=== PATIENT | female | born 1950 | race Caucasian/White ===

== ENCOUNTER 2020-07-09 10:21 | Emergency (ER) | payer MEDICARE, SELFPAY ==
--- NOTE | ~2020-07-09 | XR_ITS ---
EXAMINATION: XR chest 2V DATE: 07/09/2020 11:20 INDICATION: Chest pain. Palpitations. TECHNIQUE: Frontal and lateral views of the chest were obtained. COMPARISON: Chest 2 views 12/24/2012, CT abdomen and pelvis 03/13/2016 FINDINGS: The chest demonstrates clear lungs without pneumonia, pleural effusion, or pneumothorax. Th e heart size is normal. Surgical clips in the right upper quadrant are likely from cholecystectomy. IMPRESSION: 1. No acute cardiopulmonary disease. Reviewed, dictated and finalized at location B.
[2020-07-09 10:29] VITALS: BP 180/70; PULSE 109; RESP 18; TEMP 36.6; O2SAT 100
--- NOTE | 2020-07-09 10:32 | ECG_ITS ---
Measurements Intervals Trade Rate: 107 P: 59 [place]: 146 QRS: 19 QRSD: 83 T: 34 QT: 317 QTc: 424 Interpretive Statements SINUS TACHYCARDIA DELAYED PRECORDIAL R/S TRANSITION MINIMAL Q WAVES- INFERIOR LEADS BORDERLINE ST-T WAVE ABNORMALITY- ANT/HIGH LAT LEADS ABNORMAL ECG Electronically Signed On 07-09-2020 10:53:25 CDT by Brendan Baldwin D.O.
[2020-07-09 10:51] LABS: Basophils Absolute Auto 0.1 K/mm3 (0.0-0.1); Eosinophils Absolute Auto 0.2 K/mm3 (0-0.3); Eosinophils Percent Auto 2.3 % (0-4.4); Hematocrit 39.1 % (37.0-47.0); Hemoglobin 13.2 g/dL (12.0-15.0); Immature Granulocyte Absolute 0.02 K/mm3 (0.00-0.031); Immature Granulocyte Percent A 0.3 % (0-0.5); Lymphocytes Absolute Auto 1.49 K/mm3 (0.9-3.2); Lymphocytes Percent Auto 21.5 % (18.3-44.2); Mean Corpuscular HGB Conc 33.8 g/dl (32-36); Mean Corpuscular Hemoglobin 31.6 pg (26-34); Mean Corpuscular Volume 93.5 fl (80-100); Mean Platelet Volume 9.5 fl (7.4-10.4); Monocytes Absolute Auto 0.6 K/mm3 (0.1-0.6); Monocytes Percent Auto 8.5 % (2.6-8.5); Neutrophils Absolute Auto 4.6 K/mm3 (1.3-6.7); Neutrophils Percent Auto 66.4 % (45.5-73.1); Platelet Count Result 337 k/mm3 (150-375); Red Blood Count 4.18 M/mm3 (4.2-5.4); Red Cell Distribution Width 13.2 % (11.5-14.5); White Blood Count 6.9 K/mm3 (4.5-10.0)
--- NOTE | 2020-07-09 10:51 | ED.ARRPALP ---
HPI - Arrhythmia/Palpitations General Chief Complaint: Arrhythmia/Palpitations Stated Complaint: Rapid Heart Rate Time Seen by Provider: 07/09/20 10:35 History of Present Illness HPI narrative: Patient presents to the ED with 3 days of fast heart rate. She said it was up to 140. She said there is discomfort with it but is not really chest pain. She thought initially it might be a panic attack because she does have some stress in the family, but meditation did not help. She does not smoke cigarettes, and drinks alcohol, but denies the possibility of alcohol withdrawal. She drinks max 5 drinks in a day, but says she is not a heavy drinker. She usually drinks 2-4 drinks a day. She is on a keto diet and has lost 15 pounds in 2 months. She is not taking any diet pills. She is not taking any pseudoephedrine with her Claritin or Zyrtec. She is worried about her grandson who recently lost his job and is bipolar in a manic phase and will not see a doctor. 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 She has not been sick otherwise with cough cold fever or throwing up or diarrhea. MD complaint: rapid heart beat, heart racing , palpitations and irregular heart beat Onset (ago): day(s) Duration: constant Severity: moderate Context: occurred during rest Arrhythmia history: other (None) Associated symptoms: chest pain and anxiety Treatments prior to arrival: other (Meditation) Related Data Home Medications Medication Instructions Recorded Confirmed loratadine [Claritin] mg 10/01/19 omeprazole magnesium [Prilosec OTC] PO 10/01/19 Allergies Allergy/AdvReac Type Severity Reaction Status Date / Time codeine Allergy Unknown HALLUCINATI Verified 07/09/20 10:35 ONS Penicillins Allergy Unknown Rash Verified 07/09/20 10:35 Review of Systems Review of Systems: Narrative: CONSTITUTIONAL: Denies fever, chills, or sweats. EYES: Denies visual changes, redness, or discharge. ENT: Denies rhinorrhea, congestion, sore throat, or otalgia. CARDIOVASCULAR: She has chest pain, and palpitations, but not edema. RESPIRATORY: Denies cough or dyspnea. GASTROINTESTINAL: Denies abdominal pain, nausea, vomiting, or diarrhea. GENITOURINARY: Denies dysuria or hematuria. SKIN: Denies rash or itching. MUSCULOSKELETAL: Denies back pain, joint pain, or myalgia. NEUROLOGIC: Denies headache, numbness, or weakness. PSYCHIATRIC: He has anxiety. All systems reviewed & are unremarkable except as noted in HPI and below PMFSH Family History Family History Mother Family history of osteoporosis Father Family history of Alzheimer's disease Sibling Family history of diabetes mellitus in first degree relative Grandparent Diabetes mellitus Social History Social History (Updated 07/09/20 @ 10:55 by Leslie Howard MD) Smoking status: Never smoker Second hand tobacco smoke exposure: No Alcohol intake: current Substance use: never Gender identity (if verbalized by the patient): Female Exam Narrative: Exam Narrative: GENERAL: Well-appearing, well-nourished, and in no acute distress. Overweight HEAD: Normocephalic, atraumatic. EYES: PERRLA and EOMI. ENT: Nares clear, no rhinorrhea or epistaxis. Mucous membranes dry. NECK: Supple. CHEST: Clear to auscultation. No respiratory distress. HEART: Regular rate and rhythm. No murmur heard. Normal peripheral pulses. ABDOMEN: Soft, nontender, nondistended, normal active bowel sounds. EXTREMITIES: Normal range of motion. No edema. SKIN: Warm, dry, no rash. NEURO: No focal deficits. Alert and oriented x3. PSYCH: Normal mood and affect. Course Reevaluation(s) Reevaluation #1: Went back in and checked on the patient, she is feeling fine. I told all of her blood work was normal. Waiting for her urine test. Can send her home on a blood pressure medicine that was slow her heart rate. Date: 07/09/20 Time: 13:31 Reevaluation #2: Went back and checke
--- NOTE | 2020-07-09 10:54 | PC.NURSE ---
VERBAL ORDER FROM ERP BROOKE TO HOLD ASPIRIN.
[2020-07-09 11:03] LABS: Partial Thromboplastin Time 25.2 SECONDS (22.3-36.8); Prothrombin Time 12.9 Seconds (11.1-14.7)
[2020-07-09 11:06] LABS: D Dimer 0.31 ug/mL (<0.48)
[2020-07-09 11:08] LABS: Anion Gap 10 mmol/L (8-16); Blood Urea Nitrogen 14 mg/dL (7-17); Calcium 9.6 mg/dL (8.4-10.2); Carbon Dioxide 29 mmol/L (22-30); Chloride 91 mmol/L (98-107); Estimated CRCL calculation 91 ml/min; Estimated Glomerular Filt Rate > 60; Glucose 129 mg/dL (65-105); Potassium 3.6 mmol/L (3.4-5.0); Sodium 130 mmol/L (137-145)
[2020-07-09 11:21] LABS: Troponin I < 0.012 ng/mL (0.000-0.034)
--- NOTE | 2020-07-09 11:30 | PC.NURSE ---
PT UNABLE TO URINATE, REFUSING CATH.
[2020-07-09 11:41] VITALS: BP 144/78; PULSE 100; RESP 14; O2SAT 98
[2020-07-09] MEDS: SODIUM CHLORIDE 0.9% IV 1,000 ML 999 ML IV CONT (11:41)
--- NOTE | 2020-07-09 12:00 | PC.NURSE ---
PT UNABLE TO URINATE REFUSING CATH.
[2020-07-09 12:14] LABS: Alanine Aminotransferase 28 U/L (4-35); Albumin Level 4.3 g/dL (3.5-5.1); Alkaline Phosphatase 79 U/L (38-126); Anion Gap 11 mmol/L (8-16); Aspartate Amino Transferase 24 U/L (14-36); Bilirubin,Total 0.7 mg/dL (0.2-1.3); Blood Urea Nitrogen 14 mg/dL (7-17); Calcium 9.8 mg/dL (8.4-10.2); Carbon Dioxide 28 mmol/L (22-30); Chloride 91 mmol/L (98-107); Estimated CRCL calculation 91 ml/min; Estimated Glomerular Filt Rate > 60; Glucose 126 mg/dL (65-105); Potassium 3.8 mmol/L (3.4-5.0); Sodium 130 mmol/L (137-145)
[2020-07-09 12:15] LABS: Ethanol < 10 mg/dL (<10)
[2020-07-09 12:55] VITALS: BP 131/74; PULSE 92; RESP 18; O2SAT 99
--- NOTE | 2020-07-09 13:00 | PC.NURSE ---
PT ATTEMPTING URINE SAMPLE AT THIS TIME.
[2020-07-09 13:53] LABS: Appearance Urine Clear (Clear); Color Urine Colorless (Yellow)
[2020-07-09 13:54] LABS: Blood Urine Negative (Negative); Glucose Urine UA Negative (Negative); Ketones Urine 3+ mg/dL (Negative); Protein Urine Negative (Negative); Specific Grav Ur 1.015 (1.001-1.035)
[2020-07-09 13:55] LABS: Add Urine Microscopic? YES; Bilirubin Urine Negative (Negative); Leukocyte Esterase Ur Negative LEU/UL (Negative); Nitrate Urine Negative (Negative); Urobilinogen Urine 0.2 mg/dL (<2.0)
[2020-07-09 13:56] LABS: Bacteria Urine Trace /hpf; RBC Urine 0-2 /hpf (0-2); Squamous Epithelial Cell Urine Occasional /hpf (Few); WBC Urine 0-3 /hpf
[2020-07-09 14:01] LABS: Amphetamine Screen Urine Negative (Negative); Barbiturate Screen Urine Negative (Negative); Benzodiazepines Screen Urine Negative (Negative); Cannabinoid Screen Urine Negative (Negative); Cocaine Screen Urine Negative (Negative); Methadone Screen Urine Negative (Negative); Opiate Screen Urine Negative (Negative); Phencyclidine Screen Urine Negative (Negative)
[2020-07-09 14:11] VITALS: BP 107/66; PULSE 88; RESP 16; O2SAT 97
[2020-07-09 14:29] LABS: Troponin I < 0.012 ng/mL (0.000-0.034)
[2020-07-09 14:45] VITALS: BP 109/65; PULSE 87; RESP 19; O2SAT 97
== END 2020-07-09 14:46 | disposition home or self-care (01) ==
PROVIDERS: Emergency Provider Emergency Medicine; PCP Internal Medicine
DX: R00.2 Palpitations (principal); R00.0 Tachycardia, unspecified; E87.6 Hypokalemia; R94.31 Abnormal electrocardiogram [ECG] [EKG]; R07.9 Chest pain, unspecified; I10 Essential (primary) hypertension; Z79.899 Other long term (current) drug therapy
CPT/HCPCS: 36415; 71046; 80048; 80053; 80307; 81001; 84443; 84484; 85025; 85380; 85610; 85730; 93005; 96360; 99284; J7030

== ENCOUNTER 2020-07-09 15:19 | Outpatient (CLI) | payer MEDICARE, SELFPAY ==
--- NOTE | 2020-07-12 16:44 | WPDHOLTEREM ---
Holter/Event Monitor Holter/Event Monitor Date of procedure: 07/09/20 Procedure Type: 48 hour holter monitor Indications: Palpitations Conclusion: 1. 48 hour holter monitor on 07/09/20. 2. Predominant rhythm is sinus rhythm. HR range 57-218 bpm; average HR 90 bpm. 3. There are 247 premature supraventricular complexes and 68 supraventricular couplets. There are 84 episodes of paroxysmal atrial fibrillation with total burden 9.1%; fastest at 218 bpm. 4. There are 1,689 premature ventricular complexes, 59 ventricular couplets and 1 ventricular triplet. No ventricular tachycardia. 5. No sinoatrial or atrioventricular blocks. No significant pauses greater than 2 seconds. 6. Patient reports headache, dizziness, nausea which demonstrate sinus rhythm, HR range 82-126 bpm.
== END 2020-07-09 15:20 | disposition home or self-care (01) ==
LOC: ANHCARD 15:23
PROVIDERS: PCP Internal Medicine; Visit Provider Internal Medicine
DX: R00.2 Palpitations (principal)
CPT/HCPCS: 93225; 93226

== ENCOUNTER 2020-08-13 14:52 | Outpatient (CLI) | payer MEDICARE, SELFPAY ==
--- NOTE | 2020-08-13 15:05 | ECHO_ITS ---
Patient Info Name: Olivia Dunbar Age: 70 years : 1950 Gender: Female Ht: 65 in Wt: 230 lbs BSA: 2.24 m2 HR: 80 bpm BP: 149 / 77 mmHg Heart Rhythm: Sinus Rhythm Technical Quality: Good Exam Date: 08/13/2020 3:28 PM Exam Location: [facility] Patient Status: Outpatient Admit Date: 08/13/2020 Staff Ordering Physician: Brendan Baldwin DO Bag Mender: Vincenzo Yoo RDCS Attending Provider: Brendan Baldwin DO Referring Physician: Denny HUMPHREY; Exam Type: CA echo doppler color flow Study Info Indications I48.0 - Paroxysmal atrial fibrillation Complete two-dimensional, color flow and Doppler transthoracic echocardiogram is performed. Strain analysis performed. History/Risk Factors Paroxysmal Atrial Fibrillation; Palpitations. Summary 1. Complete two-dimensional, color flow and Doppler transthoracic echocardiogram is performed. 2. Left ventricular chamber dimension is normal. 3. Left ventricular systolic function is normal, estimated at 65-70%. 4. The left ventricular diastolic function is grade I diastolic dysfunction. 5. E/e' 6 is not elevated. 6. Global longitudinal strain is normal at -20.8%. 7. Left atrial chamber dimension is mildly enlarged. 8. There is mild aortic valve sclerosis. 9. There is trace tricuspid valve regurgitation. 10. No pulmonary hypertension, estimated pulmonary arterial systolic pressure is 34 mmHg. Left Ventricle E/e' 6 is not elevated. Global longitudinal strain is normal at -20.8%. Left ventricular chamber dimension is normal. Left ventricular systolic function is normal, estimated at 65-70%. The left ventricular diastolic function is grade I diastolic dysfunction. Right Ventricle Right ventricular chamber dimension is normal. Right ventricular systolic function is normal. Left Atria Left atrial chamber dimension is mildly enlarged. Right Atria Right atrial chamber dimension is normal. Aortic Valve The aortic valve is trileaflet. There is mild aortic valve sclerosis. There is no aortic valve stenosis. There is no aortic valve regurgitation. Pulmonic Valve There is no pulmonic regurgitation. Mitral Valve There is no mitral valve stenosis. There is no mitral valve regurgitation. Tricuspid Valve There is trace tricuspid valve regurgitation. No pulmonary hypertension, estimated pulmonary arterial systolic pressure is 34 mmHg. Pericardium/Pleural There is no pericardial effusion. Inferior Vena Cava Normal inferior vena cava with >50% collapse upon inspiration consistent with normal right atrial pressure, 5 mmHg. Aorta The aortic root size at the sinus of Valsalva is normal. Left Ventricular Outflow Tract Name Value Normal LVOT 2D LVOT Diameter 2.0 cm LVOT Doppler LVOT Peak Gradient 7 mmHg LVOT Mean Gradient 4 mmHg LVOT VTI 27 cm LVOT VTI/AV VTI Ratio 0.7 LVOT Stroke Volume 84 ml LVOT CO 6.6 l/min LVOT CI
== END 2020-08-13 14:53 | disposition home or self-care (01) ==
LOC: ANHCARD 14:54
PROVIDERS: PCP Internal Medicine; Visit Provider Internal Medicine Cardiovascular Disease
DX: I48.0 Paroxysmal atrial fibrillation (principal); I35.1 Nonrheumatic aortic (valve) insufficiency
CPT/HCPCS: 93306

== ENCOUNTER 2020-08-27 05:42 | Outpatient (CLI) | payer MEDICARE, SELFPAY ==
--- NOTE | 2020-09-25 14:29 | WPDHOMESLEEP ---
Sleep Study - Home Unattended Date of Study: 08/27/20 Ordering Provider: Brendan Baldwin DO Interpreting Physician: Veronica De La Vega MD Home Sleep Study Type: Apnea Link Air Height: 1.68 m Weight: 105.233 kg Body Mass Index: 37.4 [place]: 6 Reason for Sleep Study Hypersomnia Sleep History Olivia Dunbar is a 70 year-old female who wakes up frequently at night. She snores loudly and her reports witnessed apneas. She frequently awakens at night with heartburn and belching or coughing. She occasionally awakens from sleep feeling short of breath. She occasionally has trouble sleeping with a cold and occasionally wakes up gasping for breath at night. She frequently has breathing problems at night observed by others, rarely sweats excessively at night, occasionally notices her heart pounding or beating irregularly and I. She rarely falls asleep in the day, never involuntarily, never while driving and never during physical effort. She does not have loss of muscle tone with strong emotion, does not have daytime difficulties due to excessive sleepiness. 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 She does not feel paralyzed on waking or falling asleep. She occasionally has vivid dreamlike scenes upon awakening or falling asleep. She has never for a to go to sleep. She rarely has nightmares. She occasionally remembers her dreams, occasionally has racing thoughts, frequently feels sad, depressed or anxious. She rarely has muscular tension. She occasionally notices parts of her body jerking and she occasionally kicks at night. She frequently has crawly aching feelings in her legs and occasionally has leg pain at night. She does not have morning jaw pain. She rarely grinds her teeth during sleep. She occasionally has bothered by pain during the day, never is awakened by pain at night. She occasionally wakes up feeling stiff in the morning with sore achy muscles. She constantly wakes up with pain in the neck and spine. She has fatigue, palpitations and stomach problems. Normal bedtime is 10:00 p.m. falling asleep within 5-15 minute, typically waking 3-5 times at night for 1-3 minutes. While she wakes at night she repositions for comfort, tries to close her eyes and relax. She wakes at 5 in the morning during the week. On the weekend she stays awake an hour later to 11:00 p.m. and sleeps an hour later to 6:00 a.m.. She does not usually take naps. A short nap may be refreshing. Most of the time she feels good in the morning. She feels better in the afternoon compared to the morning. HABITS: never smoked tobacco. Coffee 1 cup a day and 1 glass of soda a day. Alcohol 1-3 drinks twice a week. [facility] Past Medical History Medical History Chronic anticoagulation Essential (primary) hypertension FH: cholecystectomy FH: cholecystectomy Hyperlipidemia Palpitations Paroxysmal atrial fibrillation Surgical History Surgical History H/O: hysterectomy H/O: hysterectomy Family History Family History Mother Family history of osteoporosis Father Family history of Alzheimer's disease Sibling Family history of diabetes mellitus in first degree relative Grandparent Diabetes mellitus Social History Social History Smoking status: Never smoker Second hand tobacco smoke exposure: No Alcohol intake: current Substance use: never Gender identity (if verbalized by the patient): Female Medications Home Medications Medication Instructions Recorded Confirmed Type loratadine [Claritin] mg 10/01/19 09/07/20 History omeprazole magnesium [Prilosec OTC] PO 10/01/19 09/07/20 History metoprolol succinate 25 mg 25 mg PO DAILY #30 tablet 07/16/20 09/07/20 Rx tablet,extended release 24 hr rivaroxaban 20 mg tablet 20 mg PO DAILY
[2020-09-25 14:45] VITALS: BMI 37.4
== END 2020-08-27 05:43 | disposition home or self-care (01) ==
LOC: ANHCSM 09-30 05:43
PROVIDERS: PCP Internal Medicine; Visit Provider Internal Medicine Cardiovascular Disease
DX: G47.33 Obstructive sleep apnea (adult) (pediatric) (principal); G47.10 Hypersomnia, unspecified; I10 Essential (primary) hypertension; I48.0 Paroxysmal atrial fibrillation; E78.5 Hyperlipidemia, unspecified; Z79.01 Long term (current) use of anticoagulants; E66.9 Obesity, unspecified; Z68.37 Body mass index [BMI] 37.0-37.9, adult
CPT/HCPCS: 95806

== ENCOUNTER 2020-09-30 08:42 | Outpatient (CLI) | payer MEDICARE, SELFPAY ==
--- NOTE | ~2020-09-30 | DEXA_ITS ---
Bone Density Report Name: Olivia Dunbar Age: 70 Sex: Female Ethnicity: White Date of : 1950 Indication: postmenopausal; parental hip fracture; height loss; hysterectomy; Referring Provider: Solomon Oakes Study: Bone densitometry was performed. Exam Date: September 30, 2020 Accession number: [id number] Bone Density: Region BMD T-score Z-score Classification AP Spine (L1-L4) 1.437 3.5 5.5 Normal Femoral Neck (Left) 0.780 -0.6 1.1 Normal Total Hip (Left) 0.916 -0.2 1.2 Normal Total Hip Bilateral Avg 0.935 -0.1 1.4 Normal Femoral Neck (Right) 0.823 -0.2 1.5 Normal Total Hip (Right) 0.952 0.1 1.5 Normal World Health Organization criteria for BMD impression classify patients as: Normal (T-score at or above -1.0), Osteopenia (T-score between -1.0 and -2.5), or Osteoporosis (T-score at or below -2.5). 10-year Fracture Risk: FRAX not reported because: All T-scores for Spine Total, Hip Total, Femoral Neck at or above -1.0 Clinical Information Provided by Patient: Parent has had a hip fracture Has used the following medications: Vitamin D, Calcium Has the following medical conditions: Hysterectomy Patient maximum height was 66.5 Menopause Age: 40 No regular weight bearing exercise Does not regularly consume dairy products Onset of menses at age 12 Number of children 2 Impression: The patient has normal bone mass. The patient has risk factors, including: parental hip fracture. Discussion: BONE DENSITY IS ABOVE THE MINIMUM DESIRABLE LEVEL AT ALL SKELETAL SITES TESTED. This patient?s bone mineral density is above the minimum desirable level (T-score -1.0 or better) at all sites measured. The patient should follow a healthful lifestyle (good nutrition with adequate calcium and vitamin D, and appropriate weight-bearing exercise). Follow-Up: Consider repeating this study in 5 years or sooner if there is some new clinical indication. Reported by: TAYLER on 09/30/2020 9:02:00 AM. Reviewed, dictated and finalized at location A. RICK
== END 2020-09-30 08:43 | disposition home or self-care (01) ==
LOC: ANHIMG 08:45
PROVIDERS: PCP Internal Medicine; Visit Provider Physician Assistant
DX: Z78.0 Asymptomatic menopausal state (principal)
CPT/HCPCS: 77080

== ENCOUNTER 2020-10-23 01:06 | Outpatient (CLI) | payer MEDICARE, SELFPAY ==
[2020-10-23 18:31] LABS: SARS-CoV-2 RNA PCR Negative
== END 2020-10-23 01:07 | disposition home or self-care (01) ==
LOC: ANHCOVIDDT 01:07
PROVIDERS: PCP Internal Medicine; Visit Provider Internal Medicine Critical Care Medicine
DX: Z20.828 Contact with and (suspected) exposure to other viral communicable diseases (principal)
CPT/HCPCS: 87635; C9803; U0003

== ENCOUNTER 2020-10-26 08:11 | Outpatient (CLI) | payer MEDICARE, SELFPAY ==
--- NOTE | 2020-12-09 17:18 | WPDSLEEPSTUD ---
Sleep Study Date of Study: 10/26/20 Ordering Provider: Brendan Baldwin DO Interpreting Physician: Veronica De La Vega MD Sleep Study Type: CPAP Titration Height: 1.65 m Weight: 105.687 kg Body Mass Index: 38.7 Neck Circumference: 43.18 cm [place]: 6 Reason for Sleep Study Home sleep test 07/21/2020 with moderate sleep-disordered breathing, AHI 15.3 with 88% of the apneas on the home test scored as centrals, and desaturation to 80%; present for CPAP titration Sleep History Olivia Dunbar is a 70 year old female with a HST 07/21/2020 showing moderate sleep disordered breathing with AHI 15.3 with 88% central apneas and desaturation to 80%. History includes waking frequently at night. She snores loudly and her reports witnessed apneas. She frequently awakens at night with heartburn and belching or coughing. She occasionally awakens from sleep feeling short of breath. She occasionally has trouble sleeping with a cold and occasionally wakes up gasping for breath at night. She frequently has breathing problems at night observed by others, rarely sweats excessively at night, occasionally notices her heart pounding or beating irregularly and I. She rarely falls asleep in the day, never involuntarily, never while driving and never during physical effort. She does not have loss of muscle tone with strong emotion, does not have daytime difficulties due to excessive sleepiness. 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 She does not feel paralyzed on waking or falling asleep. She occasionally has vivid dreamlike scenes upon awakening or falling asleep. She has never for a to go to sleep. She rarely has nightmares. She occasionally remembers her dreams, occasionally has racing thoughts, frequently feels sad, depressed or anxious. She rarely has muscular tension. She occasionally notices parts of her body jerking and she occasionally kicks at night. She frequently has crawly aching feelings in her legs and occasionally has leg pain at night. She does not have morning jaw pain. She rarely grinds her teeth during sleep. She occasionally has bothered by pain during the day, never is awakened by pain at night. She occasionally wakes up feeling stiff in the morning with sore achy muscles. She constantly wakes up with pain in the neck and spine. She has fatigue, palpitations and stomach problems. Normal bedtime is 10:00 p.m. falling asleep within 5-15 minutes, typically waking 3-5 times at night for 1-3 minutes. While she wakes at night she repositions for comfort, tries to close her eyes and relax. She wakes at 5:00 a.m. during the week. On the weekend she stays awake an hour later, 11:00 p.m., sleeps an hour later to 6:00 a.m.. She does not usually take naps. A short nap may be refreshing. Most of the time she feels good in the morning. She feels better in the afternoon compared to the morning. HABITS: never smoked tobacco. Coffee 1 cup a day and 1 glass of soda a day. Alcohol 1-3 drinks twice a week. [facility] Past Medical History Medical History (Updated 12/13/20 @ 10:25 by Veronica De La Vega MD) Chronic anticoagulation Essential (primary) hypertension FH: cholecystectomy FH: cholecystectomy Hyperlipidemia Obstructive sleep apnea Palpitations Paroxysmal atrial fibrillation Surgical History Surgical History H/O: hysterectomy H/O: hysterectomy Family History Family History Mother Family history of osteoporosis Father Family history of Alzheimer's disease Sibling Family history of diabetes mellitus in first degree relative Grandparent Diabetes mellitus Social History Social History Smoking status: Never smoker Second hand tobacco smoke exposure: No Alcohol intake: current Substance use: never Gender identity (if verbalized by the patient): Female Medications Home
[2020-12-13 10:30] VITALS: BMI 38.7
== END 2020-10-26 08:12 | disposition home or self-care (01) ==
LOC: ANHCSM 08:13
PROVIDERS: PCP Internal Medicine; Visit Provider Internal Medicine Cardiovascular Disease
DX: G47.33 Obstructive sleep apnea (adult) (pediatric) (principal); I10 Essential (primary) hypertension; I48.0 Paroxysmal atrial fibrillation; G47.10 Hypersomnia, unspecified; F10.10 Alcohol abuse, uncomplicated
CPT/HCPCS: 95811

== ENCOUNTER 2021-07-13 14:00 | Outpatient (CLI) | payer MEDICARE, SELFPAY ==
--- NOTE | ~2021-07-13 | MM_ITS ---
EXAMINATION: MM screening radha BI w samantha HISTORY: Screening mammogram TECHNIQUE: Craniocaudal and mediolateral oblique 3-D tomosynthesis images were obtained and synthetic 2-D images were generated. CAD analysis was submitted and interpreted. COMPARISON: 06/05/2012 BREAST PARENCHYMAL COMPOSITION: The breasts are almost entirely fatty. FINDINGS: There is no evidence of suspicious mass, calcification, or architectural distortion to sugg est malignancy in either breast. There has been no suspicious interval change. IMPRESSION: 1. No mammographic evidence of malignancy. 2. Recommend routine screening mammography in one year. BI-RADS Category 1: Negative Reviewed, dictated and finalized at location A.
== END 2021-07-13 14:01 | disposition home or self-care (01) ==
LOC: ANHIMG 14:04
PROVIDERS: PCP Internal Medicine; Visit Provider Internal Medicine
DX: Z12.31 Encounter for screening mammogram for malignant neoplasm of breast (principal)
CPT/HCPCS: 77063; 77067

== ENCOUNTER 2021-10-21 12:30 | Outpatient (RCR) | payer MEDICARE, SELFPAY ==
--- NOTE | 2021-09-20 14:49 | PTOPEVAL ---
Thank you for referring Olivia Dunbar to [facility].? The patient is scheduled to be seen for therapy? 1 x/week for 4 weeks. Please review, sign, date and return this plan of care ESCOBAR. I agree with and certify that the following plan of care is medically necessary. Referring Physician Date Attending Provider: Joseph Foster MD Diagnosis humaira knee pain Onset a few years Additional Evaluation Detail X-ray: windswept deformity with medial joint space narrowing on the right, lateral on the left. Both knees there is moderate to severe patellofemoral degenerative changes but tricompartmental spurring appreciated in both knees. Subjective Information She reports humaira knee pain for Query Text:As Reported By Patient/ a few years with intermittent Family pain level. She received a cortison injection humaira knees. She is limited on steps, distance walking, ADL's, transfers from lower surfaces. She has used a cane as needed for pain. Denies an exercise program. 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 Previous Treatments Previous Treatments For This Problem not for knees Pain Assessment Left Knee(s) Reported Pain Level 0 Pain Description Aching Pain Frequency Continuous Lowest Pain Intensity 0 Greatest Pain Intensity 3 Pain Aggravating Factors ADL's,Exercise/Activity,Stair Climbing,Walking Right Knee(s) Reported Pain Level 1 Pain Description Sharp Pain Frequency Chronic,Continuous Lowest Pain Intensity 1 Greatest Pain Intensity 7 Pain Aggravating Factors ADL's,Exercise/Activity,Stair Climbing,Walking Lower Extremity Range of Motion Knee Range of Motion Left Knee Flexion Range of Motion - Active 120 Right Knee Flexion Range of Motion - Active 115 Knee Extension Range of Motion - Active -2 Knee Range of Motion Limitations Pain Lower Extremity Muscle Strength Testing General Lower Extremity Strength Gross Lower Extremity Strength humaira hip flex: 4/5, ext:4-/5 and abduction: 3/5 humaira knee ext: 4-/5, knee flex
--- NOTE | 2021-09-30 11:14 | PCPTNOTE ---
Patient called to cancel appointment this date due to being sick.
--- NOTE | 2021-10-21 13:23 | PTOPEVAL ---
Physical Therapy Discharge Summary Thank you for referring Olivia Dunbar to [facility].? Olivia has attended 4 therapy visits with 1 missed visit to address her knee pain. She demonstrates improved pain, improved leg strength and improved ability to perform daily task. She has achieved maximal potential with skilled therapy services at this time. Will DC skilled PT services with goals achieved. Please review, sign, date and return this discharge summary ESCOBAR. I agree with and certify that the following plan of care is medically necessary. Referring Physician Date Attending Provider: Joseph Foster MD Problem Diagnosis humaira knee pain Onset a few years Additional Evaluation Detail X-ray: windswept deformity with medial joint space narrowing on the right, lateral on the left. Both knees there is moderate to severe patellofemoral degenerative changes but tricompartmental spurring appreciated in both knees. Subjective Information She does feel her knee pain is Query Text:As Reported By Patient/ better and her legs are Family stronger as a result of therapy. She reports improved obdulia with distance walking, steps, and transfers from lower surfaces. Denies pain with knee motions. She is not using a cane. She is performing her HEP 3x/wk. Pain Assessment Left Knee(s) Reported Pain Level 0 Lowest Pain Intensity 0 Greatest Pain Intensity 0 Right Knee(s) Reported Pain Level 2 Lowest Pain Intensity 0 Greatest Pain Intensity 5 Lower Extremity Muscle Strength Testing General Lower Extremity Strength Gross Lower Extremity Strength humaira hip flex: 4+/5, ext:4-/5 and abduction: 3+/5 humaira knee ext: 5/5, knee flex: 5/5 Stair Climbing Assessment Stair Climbing Assessment Stair Climbing Assistive Devices Hand Hold Technique Alternating Steps Stair Climbing Direction Both Up and Down Stair Climbing Comments no pain with proper control and position PT Clinical Summary Pt referred to therapy due to chronic knee pain. She recently received injections in her knees with improved symptoms on left knee. She has attended 4 therapy
== END 2021-10-24 09:15 | disposition home or self-care (01) ==
LOC: ANHPT 12:30
PROVIDERS: PCP Internal Medicine; Visit Provider Orthopaedic Surgery
DX: M25.561 Pain in right knee (principal); M25.562 Pain in left knee
CPT/HCPCS: 97110; 97112; 97162

== ENCOUNTER → 2021-11-04 10:35 | Outpatient (CLI) | payer MEDICARE, SELFPAY ==
[2021-11-04 19:26] LABS: SARS-CoV-2 RNA PCR Negative
== END ==
PROVIDERS: PCP Internal Medicine; Visit Provider Internal Medicine
DX: R50.9 Fever, unspecified (principal); Z20.822 Contact with and (suspected) exposure to COVID-19
CPT/HCPCS: C9803; U0003; U0005

== ENCOUNTER → 2021-11-07 15:10 | Outpatient (CLI) | payer MEDICARE, SELFPAY ==
--- NOTE | ~2021-11-07 | XR_ITS ---
EXAMINATION: XR chest 2V 11/07/2021 15:33 INDICATION: Cough. Chest pain. Palpitations. PROCEDURE: 2 view chest COMPARISON: Comparison to multiple prior studies sequentially, with oldest reviewed study dated 07/2004. FINDINGS: The lungs are clear. The cardiomediastinal silhouette is within normal limits. There are no pleural effusions. There is no pneumothorax suspected. IMPRESSION: 1: NO ACUTE CARDIOPULMONARY DISEASE. Reviewed, dictated and finalized at location A. ER PRINTER
== END ==
PROVIDERS: PCP Internal Medicine; Visit Provider Physician Assistant
DX: R05.9 Cough, unspecified (principal)
CPT/HCPCS: 71046

== ENCOUNTER 2022-03-17 10:08 | Outpatient (CLI) | payer MEDICARE, SELFPAY ==
--- NOTE | 2022-03-20 17:25 | P.PCNPFT_ITS ---
PFT Procedure Performed PFT Procedure Performed Spirometry with Pre/Post Bronchodilator Plethysmography (Lung Vol) Diffusing Cap (DLCO) Flow Vol Loop PFT Interpretation DOS: 03/17/2022 REQUESTING: Dr. De La Vega REASON FOR TESTING: Shortness of breath PULMONARY FUNCTION TESTS Results are reliable and reproducible. THE PATIENT WAS VERY DIZZY, NEARLY PASSED OUT DURING SPIROMETRY. SHE DID NOT HAVE PROBLEMS DURING THE REST OF THE TEST. Spirometry: Pre bronchodilator FEV1 is 71% predicted, 1.64 L, mildly reduced. Pre bronchodilator FVC is 78% predicted, 2.32 L which is in the normal range. The FEV1/ FVC ratio is 71%, within the normal range. There is a 12% increase in the FEV1 which is equal to 200 mL which is statistically significant. Lung volumes: The total lung capacity is 126% predicted, 6.53 L. This shows mild hyperinflation. The residual volume is 155%, 3.43 L, moderate air tr apping. The RV/TLC ratio is increased 53% consistent with air trapping. Airway resistance is normal. Diffusion: DLCO is 80%, normal. Flow volume loop: Mild concave pattern of the expiratory limb consistent with obstruction. IMPRESSION: This pulmonary function test shows a mild obstructive ventilatory impairment with good response to bronchodilator, mild hyperinflation, moderate air trapping and normal diffusion. In a proper clinical setting this pattern may be consistent with asthma. Veronica De La Vega MD
--- NOTE | 2022-03-20 17:33 | P.PCNSIX_ITS ---
Six Minute Walk Procedure Procedure Performed Pulmonary Stress Test (6 min walk) Six Minute Walk Six Minute Walk: DOS: 03/17/2022 REQUESTING: Dr De La Vega REASON FOR TESTING: Shortness of breath SIX MINUTE WALK This test was conducted using ATS guidelines. Initial saturation was 90% and pu lse was 88. Blood pressure was 120/75. The patient walked breathing room air and walked a total of 800 ft/ 243.8 m without stopping. Maximum pulse was 118. Saturation did not go below 90%. At the end of the study saturation was 95% and pulse was 97. IMPRESSION: This patient does not require supplemental oxygen with exertion.
== END 2022-03-17 10:09 | disposition home or self-care (01) ==
PROVIDERS: PCP Internal Medicine; Visit Provider Internal Medicine Critical Care Medicine
DX: R06.02 Shortness of breath (principal)
CPT/HCPCS: 94060; 94618; 94726; 94729

== ENCOUNTER 2022-04-14 01:00 | Day surgery (SDC) | payer MEDICARE, SELFPAY ==
[2022-04-04 14:39] VITALS: BMI 42.6
--- NOTE | 2022-04-13 16:19 | WPDGICN ---
Assessment and Plan Assessment and plan (1) GERD (gastroesophageal reflux disease): Code(s): K21.9 - Gastro-esophageal reflux disease without esophagitis Status: Acute Assessment and Plan: EGD with possible biopsy or dilatation or cautery. (2) Colon cancer screening: Code(s): Z12.11 - Encounter for screening for malignant neoplasm of colon Status: Acute Assessment and Plan: Colonoscopy with possible biopsy or polypectomy or cautery or injection of substances. GI Consult Note Consult date/time: 04/13/22 16:19 HPI: Olivia Dunbar is a 71 year old female With chronic and persistent acid reflux symptoms. She does take omeprazole 20 mg per day. she has been on medication for acid reflux for many years but if she skips even in those she has much more heartburn. Also she is having episodes of regurgitation up into her throat that causes choking. This is prone to happen at night. She denies dysphagia. She is due for colon cancer screening. Review of Systems Review of Systems: All systems reviewed & are unremarkable except as noted in HPI and below PMFSH Past Medical History Medical History Chronic anticoagulation Degenerative arthritis of knee, bilateral Essential (primary) hypertension FH: cholecystectomy FH: cholecystectomy FH: cholecystectomy FH: cholecystectomy Hyperlipidemia Obstructive sleep apnea Palpitations Paroxysmal atrial fibrillation Surgical History Surgical History H/O: hysterectomy S/P cataract extraction Family History Family History Mother Family history of osteoporosis Father Family history of Alzheimer's disease Sibling Family history of diabetes mellitus in first degree relative Grandparent Diabetes mellitus Social History Social History Smoking status: Never smoker Second hand tobacco smoke exposure: No Alcohol intake: current Drinks per week: 8 Substance use: never Substance use type: does not use Living arrangements: alone Gender identity (if verbalized by the patient): Female Spiritual care concerns: No Meds Home Medications and Allergies Home Medications Medication Instructions Recorded Confirmed Type loratadine [Claritin] 10 mg PO DAILY 10/01/19 04/14/22 History omeprazole magnesium [Prilosec OTC] 20 mg PO DAILY 10/01/19 04/14/22 History aspirin 325 mg tablet 325 mg PO DAILY 09/07/21 04/14/22 History Advair Diskus 100 mcg-50 mcg/dose 1 inh INHALATION Q12H #60 ea NS 11/07/21 04/14/22 Rx powder for inhalation albuterol sulfate 90 mcg/actuation 2 puff INHALATION Q4-6H #8.5 g 11/07/21 04/14/22 Rx aerosol inhaler lorazepam 0.5 mg tablet 0.5 mg PO DAILY PRN #14 tablet 11/07/21 04/14/22 Rx irbesartan 300 mg tablet 300 mg PO DAILY #90 tablet 11/08/21 04/14/22 Rx amlodipine 5 mg tablet See Rx Instructions .ROUTE 02/02/22 04/14/22 Rx .COMPLEX #90 tablet metoprolol succinate 25 mg See Rx Instructions .ROUTE 02/02/22 04/14/22 Rx tablet,extended release 24 hr .COMPLEX #90 tablet hydrochlorothiazide 50 mg tablet 50 mg PO DAILY #90 tablet 02/19/22 04/14/22 Rx cyclobenzaprine 10 mg tablet 10 mg PO QHS PRN #30 tablet 03/14/22 04/14/22 Rx sertraline 50 mg tablet 50 mg PO DAILY #90 tablet 03/14/22 04/14/22 Rx Allergies Allergy/AdvReac Type Severity Reaction Status Date / Time codeine Allergy Unknown HALLUCINATI Verified 04/14/22 10:06 ONS Penicillins Allergy Unknown Rash Verified 04/14/22 10:06 Exam Const: General: alert Nutritional Appearance: obese Orientation/consciousness: patient oriented x3 Resp: Auscultation: clear to auscultation bilaterally Cardio: Rhythm: regular rhythm GI: GI Palp: Yes Soft to palpation and No Tenderness to palpation present (GI) Neuro: General:
[2022-04-14 10:07] VITALS: BP 169/77; PULSE 85; RESP 16; TEMP 36.7; O2SAT 94; BMI 41.1
[2022-04-14] MEDS: LACTATED RINGERS 1,000 ML 150 ML IV CONT (10:19)
--- NOTE | 2022-04-14 10:54 | WPDANESEPPF ---
Anes - Initial Pre Proc Eval Procedure: Operation Date: 04/14/22 11:15 Proposed Procedures p Esophagogastroduodenoscopy & Screening Colonoscopy - Presley Harris MD Date/Time: 04/14/22 10:54 Surgeon: Presley Harris MD Pre Op Diagnosis: GERD, neoplasm screening Patient Data Age: 71 Gender: F Height: 1.65 m Weight: 112.1 kg Last Vital Signs Temp 98.1 F 04/14/22 10:07 Pulse 85 04/14/22 10:07 Resp 16 04/14/22 10:07 BP 169/77 H 04/14/22 10:07 Pulse Ox 94 04/14/22 10:07 Allergies Allergy/AdvReac Type Severity Reaction Status Date / Time codeine Allergy Unknown HALLUCINATI Verified 04/14/22 10:06 ONS Penicillins Allergy Unknown Rash Verified 04/14/22 10:06 Home Medications Medication Instructions Recorded Confirmed Type loratadine [Claritin] 10 mg PO DAILY 10/01/19 04/14/22 History omeprazole magnesium [Prilosec OTC] 20 mg PO DAILY 10/01/19 04/14/22 History aspirin 325 mg tablet 325 mg PO DAILY 09/07/21 04/14/22 History Advair Diskus 100 mcg-50 mcg/dose 1 inh INHALATION Q12H #60 ea NS 11/07/21 04/14/22 Rx powder for inhalation albuterol sulfate 90 mcg/actuation 2 puff INHALATION Q4-6H #8.5 g 11/07/21 04/14/22 Rx aerosol inhaler lorazepam 0.5 mg tablet 0.5 mg PO DAILY PRN #14 tablet 11/07/21 04/14/22 Rx irbesartan 300 mg tablet 300 mg PO DAILY #90 tablet 11/08/21 04/14/22 Rx amlodipine 5 mg tablet See Rx Instructions .ROUTE 02/02/22 04/14/22 Rx .COMPLEX #90 tablet metoprolol succinate 25 mg See Rx Instructions .ROUTE 02/02/22 04/14/22 Rx tablet,extended release 24 hr .COMPLEX #90 tablet hydrochlorothiazide 50 mg tablet 50 mg PO DAILY #90 tablet 02/19/22 04/14/22 Rx cyclobenzaprine 10 mg tablet 10 mg PO QHS PRN #30 tablet 03/14/22 04/14/22 Rx sertraline 50 mg tablet 50 mg PO DAILY #90 tablet 03/14/22 04/14/22 Rx Patient hx anesthesia problems: none Family hx anesthesia problems: none Results Review: All pre-operative results and documents have been reviewed as part of the pre-operative evaluation. [facility] Past Medical History Medical History Chronic anticoagulation Degenerative arthritis of knee, bilateral Essential (primary) hypertension FH: cholecystectomy FH: cholecystectomy FH: cholecystectomy FH: cholecystectomy Hyperlipidemia Obstructive sleep apnea Palpitations Paroxysmal atrial fibrillation Surgical History Surgical History H/O: hysterectomy S/P cataract extraction Family History Family History Mother Family history of osteoporosis Father Family history of Alzheimer's disease Sibling Family history of diabetes mellitus in first degree relative Grandparent Diabetes mellitus Social History Social History Smoking status: Never smoker Second hand tobacco smoke exposure: No Alcohol intake: current Drinks per week: 8 Substance use: never Substance use type: does not use Living arrangements: alone Gender identity (if verbalized by the patient): Female Spiritual care concerns: No Anes - Eval Final PreProcedure Day of Procedure 04/14/22 10:54 Patient weight: morbidly obese Heart: regular rate and rhythm Lungs: clear to auscultation Airway: Mallampati scale class III Neurological: alert and oriented Last oral intake: >/= 8 hours ASA classification: III Emergent: no Anesthetic plan: proceed Anesthesia type and monitoring: general GIVS and standard monitoring Results Review: All pre-operative results and documents have been reviewed as part of the pre-operative evaluation. Informed Consent: The patient's anesthetic plan and its attendant risks and benefits were discussed with the patient/family/POA. Questions were solicited and answers provided to the satisfaction of the patient/family/POA.
[2022-04-14] MEDS: BENZOCAINE (*SP) 60 ML SPRAY CAN (HURRICAINE) 1 SPRAY MUCOUS MEM (11:38)
--- NOTE | 2022-04-14 11:48 | SUR.OPER ---
EGD: [id number] COLON: [id number]
[2022-04-14 12:07] VITALS: BP 118/70; PULSE 74; RESP 18; O2SAT 96
[2022-04-14 12:17] VITALS: BP 129/73; PULSE 76; RESP 16; O2SAT 97
[2022-04-14 12:27] VITALS: BP 154/74; PULSE 74; RESP 18; O2SAT 97
== END 2022-04-14 12:45 | disposition home or self-care (01) ==
PROVIDERS: PCP Internal Medicine; Visit Provider Internal Medicine Gastroenterology
PROC: 0DJ08ZZ Inspection of Upper Intestinal Tract, Via Natural or Artificial Opening Endoscopic (ICD-10-PCS; CPT 43235; principal; 2022-04-14 11:15)
DX: Z12.11 Encounter for screening for malignant neoplasm of colon (principal); K21.00 Gastro-esophageal reflux disease with esophagitis, without bleeding; K44.9 Diaphragmatic hernia without obstruction or gangrene; K22.2 Esophageal obstruction; Z79.82 Long term (current) use of aspirin; Z79.51 Long term (current) use of inhaled steroids; I10 Essential (primary) hypertension; G47.33 Obstructive sleep apnea (adult) (pediatric); E78.5 Hyperlipidemia, unspecified; I48.0 Paroxysmal atrial fibrillation; R00.2 Palpitations; E66.01 Morbid (severe) obesity due to excess calories; Z68.41 Body mass index [BMI] 40.0-44.9, adult
CPT/HCPCS: 43239; G0121; 88305; J2704; J7120

== ENCOUNTER → 2022-06-09 02:10 | Outpatient (CLI) | payer MEDICARE, SELFPAY ==
[2022-06-09 17:30] LABS: SARS-CoV-2 RNA PCR Positive
== END ==
PROVIDERS: PCP Internal Medicine; Visit Provider Internal Medicine
DX: U07.1 COVID-19 (principal)
CPT/HCPCS: C9803; U0003; U0005

== ENCOUNTER → 2022-08-18 12:49 | Outpatient (CLI) | payer MEDICARE, SELFPAY ==
--- NOTE | ~2022-08-18 | XR_ITS ---
XR shoulder RT min 2V DATE: 08/18/2022 13:47 INDICATION: Right shoulder pain TECHNIQUE: 4 views COMPARISON: None FINDINGS: There is a prominent spurlike projection from the undersurface of the acromion process of t he scapula. No fracture, dislocation, periosteal reaction or bone destruction is detected. IMPRESSION: Prominent spur-like process at the undersurface of the acromion process No fracture or dislocation Reviewed, dictated and finalized at location B. IMPRESSION: Prominent spur-like process at the undersurface of the acromion pro cess No fracture or dislocation
== END ==
PROVIDERS: PCP Internal Medicine; Visit Provider Nurse Practitioner
DX: M25.511 Pain in right shoulder (principal); M77.8 Other enthesopathies, not elsewhere classified
CPT/HCPCS: 73030

== ENCOUNTER 2022-10-09 12:30 | Outpatient (RCR) | payer MEDICARE, SELFPAY ==
--- NOTE | 2022-09-21 15:52 | PTOPEVAL1 ---
Assessment and note entered by Fabiola Lynch, PT Evaluation Information Assessment Status Evaluation Diagnosis R shoulder pain Onset about a month ago Subjective Information Reports missed a step, reached out to grab handle to stop her fall and yanked her arm Reports overuse increases her pain. Some days is able to use her arm and some days not Reported Pain Level Pain Score 0: Self Report Assessment PT Clinical Summary Pt presents approx one month after injuring her right shoulder. Reports she had injured her R shoulder approx 10 years ago without treatment. Pt reports pain ranges from 0-8/10 in intensity, pain increases with use and with over head activities. Pt demo's multiple areas of decreased strength compared to LUE, (+) impingement test, (+ ) RTC tear supraspinatus test (mild), (+) labral test (x2). Discussed with pt performing therapy to improve ROM, strength, and pain and reassess in 8 visits further therapy vs referral back to ortho for imaging. Plan of Care Interventions Electrical Stimulation,Hot Pack/Cold Pack,Manual Therapy,Neuro Re-education,Therapeutic Activities, Therapeutic Exercise PT Services Indicated Yes These treatments will address the objective and functional deficits as defined above. The patient will be advanced safely and appropriately in order for the patient to progress towards his/her prior level of function. Additional exercises will be introduced and as well as a comprehensive home exercise program upon discharge, if needed, ?to ensure carryover of functional gains achieved in the clinic. This treatment plan has been reviewed and agreement upon by the patient.
--- NOTE | 2022-11-02 13:18 | PCPTNOTE ---
Attempted to contact patient regarding scheduling and plan of care. Left a message to please return our call. If pt does not return call within a week, will discharge from current POC d/t nonattendance.
--- NOTE | 2022-12-19 09:21 | PTOPDC ---
Assessment and note entered by Fabiola Lynch, PT Assessment Status Discharge - Pt Not Present Diagnosis R shoulder pain Assessment PT Clinical Summary Pt attended evaluation and did not return for therapy. Thus pt is being discharged from current POC due to non-attendance.
== END 2022-12-19 11:12 | disposition home or self-care (01) ==
LOC: ANHGOSHPT 12:30
PROVIDERS: PCP Internal Medicine; Visit Provider Nurse Practitioner
DX: M25.512 Pain in left shoulder (principal)
CPT/HCPCS: 97110; 97112; 97140; 97162

== ENCOUNTER 2023-04-25 15:09 | Outpatient (CLI) | payer MEDICARE, SELFPAY ==
--- NOTE | ~2023-04-25 | US_ITS ---
EXAMINATION: US venous doppler [facility] DATE: 04/25/2023 15:44 INDICATION: M25.562 - Pain in left knee . TECHNIQUE: Grayscale images without and with compression and Doppler images of the left lower extremi ty veins were obtained. COMPARISON: None FINDINGS: The left common femoral vein, profunda (deep) femoral vein, femoral vein, popliteal vein, peroneal v ein, posterior tibial veins, gastrocnemius vein, and greater saphenous vein are patent. IMPRESSION: 1. Patent left lower extremity veins. No evidence of deep venous thrombosis. Reviewed, dictated and finalized at location K.
== END 2023-04-25 15:10 | disposition home or self-care (01) ==
PROVIDERS: PCP Internal Medicine; Visit Provider Orthopaedic Surgery
DX: R22.42 Localized swelling, mass and lump, left lower limb (principal)
CPT/HCPCS: 93971

== ENCOUNTER 2023-07-20 15:15 | Emergency (ER) | payer MEDICARE, SELFPAY ==
[2023-07-20] VITALS (9 sets, daily range): BP systolic 131–165; BP diastolic 66–85; PULSE 74–91; RESP 13–19; TEMP 36.8; O2SAT 96–98
--- NOTE | ~2023-07-20 | XR_ITS ---
EXAMINATION: XR chest 1V DATE: 07/20/2023 17:14 INDICATION: Syncope TECHNIQUE: frontal view of the chest was obtained. COMPARISON: Chest radiograph dated 11/07/2021 FINDINGS: The lungs remain clear with no focal airspace opacities, pulmonary edema, pleural effusion or pneumot horax. The cardiomediastinal silhouette is normal. Visualized bones and soft tissues are unremarkable . IMPRESSION: 1. No acute cardiopulmonary disease. Reviewed, dictated and finalized at location A.
--- NOTE | ~2023-07-20 | CT_ITS ---
EXAMINATION: CT brain wo con DATE: 07/20/2023 17:09 INDICATION: Syncope TECHNIQUE: Computed tomography (CT) of the head was performed without intravenous contrast. Sagittal and coronal reconstructions were performed. The mA was adjusted according to patient size. Iterative reconstruction technique was employed. The dose-length product was 605.33 mGy-cm. COMPARISON: None FINDINGS: No acute intracranial hemorrhage, acute infarction or abnormal extra axial fluid collection. Ventricl es are normal and symmetric. No mass/mass effect. Intracranial calcified cerebral atherosclerosis is noted. Changes of bilateral intraocular lens replacement. The orbits, paranasal sinuses and mastoid a ir cells are normal. IMPRESSION: 1. No acute intracranial process. Reviewed, dictated and finalized at location A.
--- NOTE | 2023-07-20 16:27 | ECG_ITS ---
Measurements Intervals [place] Rate: 72 P: -33 ME: 135 QRS: 34 QRSD: 85 T: 14 QT: 368 QTc: 405 Interpretive Statements SINUS RHYTHM WITH OCCASIONAL SUPRAVENTRICULAR PREMATURE COMPLEXES MINIMAL ST DEPRESSION [0.025+ mV ST DEPRESSION] COMPARED TO ECG 07/09/2020 10:33:38 [address] NOW PRESENT ST (T WAVE) DEVIATION NOW PRESENT Electronically Signed On 07-21-2023 11:34:29 CDT by Josette Jarquin MD
--- NOTE | 2023-07-20 16:51 | ED.SYNCOPE ---
HPI - Syncope General Chief Complaint: Syncope Stated Complaint: cough, elevated HR Time Seen by Provider: 07/20/23 16:50 Source: patient Mode of arrival: ambulatory Limitations: no limitations History of Present Illness HPI narrative: 73 years old white female came from a vacation, went home, she have 2 cats and usually when she go away for a while and come back can trigger allergic reaction. Patient started coughing nonstop and feels like she is going to blackout and there is possibility that she did blackout, while sitting, came out of it and feels like electric shock coming from head all the way down to her body lasted less than 5 seconds during that period of time possible biting her tongue. But no blood. Patient have history of near syncope with persistent coughing. The above symptoms occurred at 6 PM last night. Currently patient feeling anxious, weak, drove herself to the emergency room. Lives alone. History of hypertension, hyperlipidemia, take albuterol as needed for possible asthma, she drinks alcohol occasionally, does not smoke or uses drugs. Related Data Home Medications Medication Instructions Recorded Confirmed loratadine 10 mg tablet (Claritin) 10 mg PO DAILY 10/01/19 05/23/23 omeprazole magnesium 20 mg 20 mg PO DAILY 10/01/19 05/23/23 tablet,delayed release (Prilosec OTC) aspirin 325 mg tablet 325 mg PO DAILY 09/07/21 05/23/23 valacyclovir 1 gram tablet 1,000 mg PO DAILY 05/23/23 05/23/23 (Valtrex) Allergies Allergy/AdvReac Type Severity Reaction Status Date / Time codeine Allergy Unknown HALLUCINATI Verified 05/23/23 15:03 ONS Penicillins Allergy Unknown Rash Verified 05/23/23 15:03 Review of Systems Review of Systems: All systems reviewed & are unremarkable except as noted in HPI and below PMFSH Past Medical History Medical History Chronic anticoagulation Degenerative arthritis of knee, bilateral Essential (primary) hypertension FH: cholecystectomy FH: cholecystectomy FH: cholecystectomy FH: cholecystectomy Hyperlipidemia Obstructive sleep apnea Palpitations Paroxysmal atrial fibrillation Surgical History Surgical History H/O: hysterectomy S/P cataract extraction Family History Family History Mother Family history of osteoporosis Father Family history of Alzheimer's disease Sibling Family history of diabetes mellitus in first degree relative Grandparent Diabetes mellitus Social History Social History Smoking status: Former smoker Second hand tobacco smoke exposure: No Alcohol intake: current Drinks per week: 8 Substance use: never Substance use type: does not use Lack of Transportation: No Lack of Food: Never True Current Housing: I Have Housing Concerned About Future Housing: No Difficulty Paying Gas/Electric Bills: No Difficulty Paying for Meds: No Education: High School Diploma/GED Difficulty w/ Childcare or Family Care: No Living arrangements: alone Gender identity (if verbalized by the patient): Female Spiritual care concerns: No Exam Narrative: General appearance: Well-developed, well-nourished Skin: Normal color Head: Normocephalic, nontraumatic Eyes: Clear conjunctiva ENT: Oropharynx normal, ears normal, nose normal, tongue exam showed no bites Neck: Supple, nontender Chest and respiratory: Airway patent, no respiratory distress, no accessory muscle use Heart: Regular rate/rhythm Abdomen: Soft, nontender, no organomegaly, quiet bowel sounds Vascular: Normal peripheral pulses, normal capillary refill. 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
[2023-07-20 17:25] LABS: Basophils Absolute Auto 0.1 K/mm3 (0.0-0.1); Eosinophils Absolute Auto 0.2 K/mm3 (0-0.3); Eosinophils Percent Auto 4.1 % (0-4.4); Hematocrit 42.6 % (37.0-47.0); Hemoglobin 13.9 g/dL (12.0-15.0); Immature Granulocyte Absolute 0.02 K/mm3 (0.00-0.031); Immature Granulocyte Percent A 0.3 % (0-0.5); Lymphocytes Absolute Auto 1.29 K/mm3 (0.9-3.2); Lymphocytes Percent Auto 22.3 % (18.3-44.2); Mean Corpuscular HGB Conc 32.6 g/dl (32-36); Mean Corpuscular Hemoglobin 32.2 pg (26-34); Mean Corpuscular Volume 98.6 fl (80-100); Mean Platelet Volume 9.8 fl (7.4-10.4); Monocytes Absolute Auto 0.5 K/mm3 (0.1-0.6); Monocytes Percent Auto 8.5 % (2.6-8.5); Neutrophils Absolute Auto 3.7 K/mm3 (1.3-6.7); Neutrophils Percent Auto 63.8 % (45.5-73.1); Platelet Count Result 269 k/mm3 (150-375); Red Blood Count 4.32 M/mm3 (4.2-5.4); Red Cell Distribution Width 13.6 % (11.5-14.5); White Blood Count 5.8 K/mm3 (4.5-10.0)
[2023-07-20 17:35] LABS: Alanine Aminotransferase 36 U/L (6-35); Albumin Level 4.2 g/dL (3.5-5.1); Alkaline Phosphatase 83 U/L (38-126); Anion Gap 2 mmol/L (8-16); Aspartate Amino Transferase 33 U/L (14-36); Bilirubin,Total 0.7 mg/dL (0.2-1.3); Blood Urea Nitrogen 10 mg/dL (7-17); Calcium 9.2 mg/dL (8.4-10.2); Carbon Dioxide 31 mmol/L (22-30); Chloride 99 mmol/L (98-107); Estimated Glomerular Filt Rate > 60; Glucose 153 mg/dL (65-110); Potassium 3.6 mmol/L (3.4-5.0); Sodium 132 mmol/L (137-145)
[2023-07-20 17:39] LABS: Prothrombin Time 13.3 Seconds (11.1-14.7)
[2023-07-20 17:40] LABS: Partial Thromboplastin Time 25.9 SECONDS (22.3-36.8)
[2023-07-20 17:47] LABS: Troponin I < 0.012 ng/mL (0.000-0.034)
== END 2023-07-20 18:57 | disposition home or self-care (01) ==
PROVIDERS: Emergency Provider Emergency Medicine; PCP Internal Medicine
DX: R05.9 Cough, unspecified (principal); R55 Syncope and collapse; E78.5 Hyperlipidemia, unspecified; I48.0 Paroxysmal atrial fibrillation; Z87.891 Personal history of nicotine dependence
CPT/HCPCS: 36415; 70450; 71045; 80053; 84484; 85025; 85610; 85730; 93005; 99284

== ENCOUNTER 2023-09-16 08:03 | Emergency (ER) | payer MEDICARE, SELFPAY ==
[2023-09-16 08:26] VITALS: BP 125/71; PULSE 79; RESP 16; TEMP 37.2; O2SAT 97
--- NOTE | 2023-09-16 08:43 | ED.GENADULT ---
HPI - General Adult General Chief complaint: Urogenital-Female Stated complaint: frequent/painful urination Source: patient Mode of arrival: ambulatory Limitations: no limitations History of Present Illness HPI narrative: Patient presents for evaluation of urinary symptoms since yesterday. Symptoms include urinary frequency, dysuria, urgency, suprapubic discomfort and low back discomfort. No fever, chills, nausea, vomiting, vaginal bleeding/discharge. She has a history of urinary tract infections and her current symptoms are consistent with those experienced in the past with UTI's. Cipro has been effective in the past. Related Data Home Medications Medication Instructions Recorded Confirmed loratadine 10 mg tablet (Claritin) 10 mg PO DAILY 10/01/19 09/16/23 omeprazole magnesium 20 mg 20 mg PO DAILY 10/01/19 09/16/23 tablet,delayed release (Prilosec OTC) aspirin 325 mg tablet 325 mg PO DAILY 09/07/21 09/16/23 Allergies Allergy/AdvReac Type Severity Reaction Status Date / Time codeine Allergy Unknown HALLUCINATI Verified 09/16/23 08:30 ONS Penicillins Allergy Unknown Rash Verified 09/16/23 08:30 Review of Systems Review of Systems: CONSTITUTIONAL: Denies fever, chills, or sweats. EYES: Denies visual changes, redness, or discharge. ENT: Denies rhinorrhea, congestion, sore throat, or otalgia. CARDIOVASCULAR: Denies chest pain, palpitations, or edema. RESPIRATORY: Denies cough or dyspnea. GASTROINTESTINAL: Denies abdominal pain, nausea, vomiting, or diarrhea. GENITOURINARY: Reports urinary frequency and dysuria. Reports suprapubic discussed. Denies vaginal bleeding/discharge SKIN: Denies rash or itching. MUSCULOSKELETAL: Reports low back pain. Denies joint pain or myalgia. NEUROLOGIC: Denies headache, numbness, dizziness, or weakness. PSYCHIATRIC: Denies anxiety or depression. [facility] Past Medical History Medical History Chronic anticoagulation Degenerative arthritis of knee, bilateral Essential (primary) hypertension FH: cholecystectomy FH: cholecystectomy FH: cholecystectomy FH: cholecystectomy Hyperlipidemia Obstructive sleep apnea Palpitations Paroxysmal atrial fibrillation Surgical History Surgical History H/O: hysterectomy S/P cataract extraction Family History Family History Mother Family history of osteoporosis Father Family history of Alzheimer's disease Sibling Family history of diabetes mellitus in first degree relative Grandparent Diabetes mellitus Social History Social History Smoking status: Never smoker Second hand tobacco smoke exposure: No Alcohol intake: current Drinks per week: 8 Substance use: never Substance use type: does not use Lack of Transportation: No Lack of Food: Never True Current Housing: I Have Housing Concerned About Future Housing: No Difficulty Paying Gas/Electric Bills: No Difficulty Paying for Meds: No Currently Unemployed: No Education: High School Diploma/GED Difficulty w/ Childcare or Family Care: No Living arrangements: alone Occupation/Education: occupation 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 HEAD: Normocephalic, atraumatic. EYES: PERRLA and EOMI. ENT: Nares clear, no rhinorrhea or epistaxis. Mucous membranes moist. Oropharynx without tonsillar hypertrophy exudate or other lesions. Bilateral TMs pearly narvaez nonbulging NECK: Supple. No adenopathy or masses. No carotid bruits or JVD CHEST: Clear to auscultation. No respiratory distress. No whee
== END 2023-09-16 08:45 | disposition home or self-care (01) ==
PROVIDERS: Emergency Provider Nurse Practitioner; PCP Internal Medicine
DX: N39.0 Urinary tract infection, site not specified (principal); I10 Essential (primary) hypertension; E78.5 Hyperlipidemia, unspecified; I48.0 Paroxysmal atrial fibrillation; Z79.82 Long term (current) use of aspirin
CPT/HCPCS: 81003; 87077; 87086; 87186; 99213; G0463

== ENCOUNTER 2023-12-21 08:07 | Outpatient (CLI) | payer MEDICARE, SELFPAY ==
--- NOTE | ~2023-12-21 | NM_ITS ---
EXAMINATION: NM khai stress w perfusion DATE: 12/21/2023 10:45 INDICATION: Chest pain TECHNIQUE: Rest images were obtained following intravenous administration of 11.9 mCi Tc99m tetrofosm in (Myoview). The patient was infused intravenously with Lexiscan (Regadenoson). Then, 34.5 mCi Tc99m tetrofosmin (Myoview) was administered intravenously, and stress images were obtained. Data was ivana nstructed into short axis and horizontal and vertical long axis SPECT images. Gated SPECT images were also obtained. COMPARISON: None. FINDINGS: There is no definite reversible or fixed perfusion abnormality to suggest ischemia or infar ction. There is normal left ventricular chamber size, wall motion and ejection fraction. Left ventr icular ejection fraction measures >70%. IMPRESSION: 1. Normal myocardial perfusion at rest and during stress. 2. Left ventricular ejection fraction measuring >70%. Reviewed, dictated and finalized at location A. [employer]
--- NOTE | 2023-12-21 08:21 | EST_ITS ---
Patient Info Name: Olivia Dunbar Age: 73 years : 1950 Gender: Female Ht: 65 in Wt: 250 lbs BSA: 2.34 m2 HR: 67 bpm BP: 117 / 59 mmHg Exam Date: 12/21/2023 9:13 AM Exam Location: [facility] Lab Patient Status: Outpatient Admit Date: 12/21/2023 Staff Ordering Physician: Brendan Baldwin DO Attending Provider: Brendan Baldwin DO Exercise Technologist: Janet Cardoza RDCS Exercise Physician: Brendan Baldwin DO Exam Type: CA stress khai w NM Study Info A regadenoson stress test was performed. Summary 1. 1. Negative lexiscan stress test for ischemic ST changes by ECG criteria. 2. 2. Stable hemodynamics throughout the test. 3. 3. Nuclear scan to follow and will be reported separately. Please correlate with it. 4. 4. Patient informed of the above results. Protocol: Lexiscan Stress ECG Details Stage: REST Duration (min): 1 min : 14 sec HR (bpm): 65 SBP (mmHg): 117 DBP (mmHg): 59 Stage: REST Duration (min): 19 min : 30 sec HR (bpm): 74 SBP (mmHg): 117 DBP (mmHg): 59 Stage: STAGE 1 Duration (min): 1 min : 0 sec HR (bpm): 93 SBP (mmHg): 128 DBP (mmHg): 54 Stage: RECOVERY Duration (min): 1 min : 0 sec HR (bpm): 87 SBP (mmHg): 128 DBP (mmHg): 54 Stage: RECOVERY Duration (min): 2 min : 0 sec HR (bpm): 80 SBP (mmHg): 128 DBP (mmHg): 54 Stage: RECOVERY Duration (min): 3 min : 0 sec HR (bpm): 80 SBP (mmHg): 118 DBP (mmHg): 58 Stage: RECOVERY Duration (min): 3 min : 13 sec HR (bpm): 78 SBP (mmHg): 118 DBP (mmHg): 58 Rest HR: 74 bpm Peak HR: 95 bpm Rest Sys BP: 117 mmHg Peak Sys BP: 128 mmHg Max Pred HR: 149 bpm % Max Pred HR: 64 % Target HR: 127 bpm Max RPP: 12,160 bpm*mmHg Termination Reason: Completed protocol Cardiac Symptoms: Shortness of breath Total Time: 1 min : 0 sec Rest Bazan BP: 59 mmHg Peak Bazan BP: 54 mmHg Total Dose: 0.4 mg Resting ECG Sinus rhythm. Stress ECG No ST changes. Arrhythmias None. Report Signatures
== END 2023-12-21 08:08 | disposition home or self-care (01) ==
LOC: ANHCARD 08:09
PROVIDERS: PCP Internal Medicine; Visit Provider Internal Medicine Cardiovascular Disease
DX: R07.89 Other chest pain (principal)
CPT/HCPCS: 78452; 93017; A9502; J2785

== ENCOUNTER 2025-07-01 17:34 | Emergency (ER) | payer MEDICARE, SELFPAY ==
[2025-07-01 17:48] VITALS: BP 163/58; PULSE 86; RESP 16; TEMP 37.2; O2SAT 97
--- NOTE | 2025-07-01 17:52 | ED.FEMALEGU ---
HPI - Female Genitourinary General Chief complaint: Urogenital-Female Stated complaint: Headache, possible UTI, rash Time Seen by Provider: 07/01/25 17:52 Source: patient Mode of arrival: ambulatory Limitations: no limitations History of Present Illness HPI Narrative: 75-year-old female presents with complaint of urinary frequency, dysuria starting yesterday. Reports chills, fatigue, body aches throughout the night. Patient has headache today. Thinks all symptoms are Caused from urinary tract infection but wants to be checked for COVID due to recent travel. no chest pain or shortness breath. Denies cough, congestion, sore throat. Took ibuprofen this morning to treat headache. Pt also reports shingles rash x 6 days. Was out of town when started so was not seen. painful and itchy. All systems reviewed and negative except as noted above. Related Data Home Medications ?Medication ?Instructions ?Recorded ?Confirmed ?Last Taken ?Type omeprazole magnesium 20 mg 20 mg PO DAILY 10/01/19 07/01/25 04/13/22 History tablet,delayed release (Prilosec OTC) aspirin 325 mg tablet 325 mg PO DAILY 09/07/21 07/01/25 04/13/22 History Allergies Allergy/AdvReac Type Severity Reaction Status Date / Time codeine Allergy Unknown HALLUCINATI Verified 07/01/25 17:44 ONS Penicillins Allergy Unknown Rash Verified 07/01/25 17:44 [facility] Past Medical History Medical History BMI 40.0-44.9, adult Other fatigue Screening mammogram, encounter for Pure hypercholesterolemia, unspecified Lipoma of neck Flu-like symptoms Dysuria Arthralgia of right hip Annual physical exam FH: cholecystectomy Degenerative arthritis of knee, bilateral FH: cholecystectomy Obstructive sleep apnea Chronic anticoagulation FH: cholecystectomy FH: cholecystectomy Hyperlipidemia Essential (primary) hypertension Paroxysmal atrial fibrillation Palpitations Surgical History Surgical History S/P cataract extraction H/O: hysterectomy Family History Family History Mother Family history of osteoporosis Hypertension Father Family history of Alzheimer's disease Heart disease Sibling Family history of diabetes mellitus in first degree relative Diabetes mellitus Grandparent Diabetes mellitus Social History Social History Smoking status: Never smoker Second hand tobacco smoke exposure: Yes Alcohol intake: current Drinks per week: 8 Substance use: never Substance use type: does not use Do You Feel Safe in your Home?: Yes Lack of Transportation: No Lack of Food: Never True Current Housing: I Have Housing Concerned About Future Housing: No Difficulty Paying Gas/Electric Bills: No Difficulty Paying for Meds: No Currently Unemployed: No Education: High School Diploma/GED Difficulty w/ Childcare or Family Care: No Living arrangements: alone Occupation/Education: occupation Additional occupation/education 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 There is no relevant family history pertinent to the presenting complaint. Exam Narrative: GENERAL: This is a well-nourished, well-developed patient, in no apparent distress. HEAD: normocephalic, atraumatic. EYES: PERRL. Sclera clear/white. Vision is grossly intact. EARS: External ears normal, auditory canals clear and without drainage, TMs normal without perforation. Hearing grossly intact. NOSE: External nose normal with no obvious nasal discharge, nares without redness, no rhinorrhea. THROAT: Mucous membranes moist, posterior pharynx clear. NECK: Neck supple, non-tender without lymphadenopathy, masses or thyromegaly. CARDIOVASCULAR: Regular rate and rhythm without murmurs, gallops, or rubs. RESPIRATORY: Clear to auscultation. Breath sounds equal bilaterally. No wheezes, rales, or rhonchi. SKIN: warm, Dry, intact, good texture and turgor. erythematous vesicular rash to L mid ABD extending around to mid back. does not cross midline. no drainage. NEURO: awake, alert, and oriented to person, place and time. There were no obvious focal neurologic abnormalities. EXTREMITIES: No joint tenderness, effusion, or edema noted. Course Course Level of Care: Express Care Visit Vital Signs Vital signs: Vital Signs Temperature 37.2 C 07/01/25 17:48 Pulse Rate 86 07/01/25 17:48 Respiratory Rate 16 07/01/25 17:48 Blood Pressure 163/58 H 08/06/25 17:48 Pulse Oximetry 97 07/01/25 17:48 Temperature 37.2 C 07/01/25 17:48 Pulse Rate 86 07/01/25 17:48 Respiratory Rate 16 07/01/25 17:48 Blood Pressure 138/80 07/01/25 18:21 Pulse Oximetry 97 07/01/25 17:48 reviewed MDM - Female Genitourinary MDM Narrative Medical decision making narrative: Negative COVID influenza test. Urinalysis positive for leukocytes, blood. Will treat for urinary tract infection. Patient feeling nauseated prior to discharge. Given Zofran. Patient offered Tylenol to treat headache and she stated she would take ibuprofen when she got home. out of treatment window for antiviral for shingles. will give lidocaine cream for pain. Differential Diagnosis Differential diagnosis: Likely urinary tract infection Lab Data Labs: Lab Results 07/01/25 07/01/25 Range/Units 17:52 18:14 POC Urine Color Yellow POC Urine Clarity Clear POC Urine pH 7.0 POC Ur Specif [place] 1.020 POC Urine Protein Negative (Negative) POC Ur Glucose (UA) Negative (Negative) POC Urine Ketones Negative (Negative) POC Urine Blood Trace (Negative) POC Urine Nitrite Negative (Negative) POC Urine Bilirubin Negative (Negative) POC Urine Urobilinogen 1.0 POC U Leukocyte Esteras 1+ (Negative) POC Influenza A Ag Negative (Negative) POC Influenza B Ag Negative (Negative) POC SARS CoV-2 Ag Negative (Negative) Discharge Plan Discharge Clinical Impression: Urinary tract infection, Shingles Patient Disposition: Home Condition: Stable Instructions: Urinary Tract Infection in Women (ED), Shingles (ED) Additional Instructions: Take antibiotic as prescribed until gone. Take tylenol or ibuprofen every 6 to 8 hours as needed for pain. Drink at least 64 ounces of water a day. See your doctor if symptoms not improving. Patient Language: [place] Prescriptions: New cephalexin 500 mg capsule 500 mg PO BID 7 Days Qty: 14 0RF ondansetron 4 mg tablet,disintegrating 4 mg PO Q8H PRN (Reason: nausea and vomiting) Qty: 12 0RF lidocaine 4 % cream 1 applic topical QID PRN (Reason: pain) Qty: 15 0RF Rx Instructions: apply sparingly to affected area No Action omeprazole magnesium [Prilosec OTC] 20 mg Tablet,Delayed Release (Dr/Ec) 20 mg PO DAILY aspirin 325 mg tablet 325 mg PO DAILY sertraline 100 mg tablet 100 mg PO DAILY Qty: 90 2RF irbesartan 300 mg tablet 300 mg PO DAILY Qty: 90 3RF montelukast [Singulair] 10 mg tablet 10 mg PO QHS 30 Days Qty: 90 3RF lorazepam 0.5 mg tablet 0.5 mg PO DAILY PRN (Reason: anxiety) Qty: 14 0RF amlodipine 5 mg tablet See Rx Instructions .ROUTE .COMPLEX Qty: 90 2RF Dose Instruction: TAKE 1 TABLET BY MOUTH EVERY DAY Rx Instructions: TAKE 1 TABLET BY MOUTH EVERY DAY metoprolol succinate 25 mg tablet extended release 24 hr See Rx Instructions .ROUTE .COMPLEX Qty: 90 2RF Dose Instruction: TAKE 1 TABLET BY MOUTH EVERY DAY Rx Instructions: TAKE 1 TABLET BY MOUTH EVERY DAY hydrochlorothiazide 25 mg tablet See Rx Instructions .ROUTE .COMPLEX Qty: 90 1RF Dose Instruction: TAKE 1 TABLET BY MOUTH EVERY DAY Rx Instructions: TAKE 1 TABLET BY MOUTH EVERY DAY albuterol sulfate 90 mcg/actuation HFA aerosol inhaler 2 puff inhalation Q4-6H Qty: 8.5 3RF Follow-up/Referrals: Franklin Sanchez DO [Primary Care Provider] - Time of Disposition: 18:24
[2025-07-01 17:54] LABS: EDUAAPPEAR Clear; EDUABILI Negative (Negative); EDUABLOOD Trace (Negative); EDUACOLOR1 Yellow; EDUAGLUCOSE Negative (Negative); EDUAKETONE Negative (Negative); EDUALEUKO 1+ (Negative); EDUANITRATE Negative (Negative); EDUAPH 7.0; EDUAPROTEIN Negative (Negative); EDUASPGRAVITY 1.020; EDUAUROBILI 1.0
[2025-07-01 18:15] LABS: EDCOVIDSCREEN Negative (Negative); EDINFLUASCREEN Negative (Negative); EDINFLUBSCREEN Negative (Negative)
[2025-07-01 18:21] VITALS: BP 138/80
[2025-07-01] MEDS: ONDANSETRON HCL ODT 4 MG TABLET SUBLINGUAL (18:23)
== END 2025-07-01 18:32 | disposition home or self-care (01) ==
PROVIDERS: Emergency Provider Nurse Practitioner Family; PCP Internal Medicine
DX: N39.0 Urinary tract infection, site not specified (principal); B02.9 Zoster without complications; Z20.822 Contact with and (suspected) exposure to COVID-19; I10 Essential (primary) hypertension; I48.0 Paroxysmal atrial fibrillation; E78.00 Pure hypercholesterolemia, unspecified; M17.0 Bilateral primary osteoarthritis of knee; Z79.82 Long term (current) use of aspirin
CPT/HCPCS: 81003; 87426; 87804; 99213; A9270; G0463